=== PATIENT | female | born 1960 | race African-American/Black ===

== ENCOUNTER 2017-11-16 16:43 | Outpatient (CLI) | payer OTHER | END 2017-11-16 16:44 | disposition home or self-care (01) | LOC: BICRAD 16:43 | PROVIDERS: ATTEND Family Medicine | DX: M79.651 Pain in right thigh (principal) | CPT/HCPCS: 72170 ==

== ENCOUNTER 2018-05-12 16:03 | Outpatient (CLI) | payer OTHER | END 2018-05-12 16:04 | disposition home or self-care (01) | LOC: BICMAMMO 16:03 | PROVIDERS: ATTEND Family Medicine | DX: Z12.31 Encounter for screening mammogram for malignant neoplasm of breast (principal) | CPT/HCPCS: 77063; 77067 ==

== ENCOUNTER 2018-06-07 12:49 | Outpatient (CLI) | payer OTHER ==
--- NOTE | 2018-06-07 15:21 | ULT ---
LEFT BREAST ULTRASOUND: Date: 06/07/18 HISTORY: Focal asymmetry seen in the lower inner aspect of the left breast on screening mammography. COMPARISON: Mammograms dated 06/07/18, 05/12/18, and 09/30/11. TECHNIQUE: Multiplanar Medina scale and color Doppler images were obtained in a left breast ultrasound. FINDINGS: There is a well-circumscribed anechoic cyst measuring 4.0 mm in greatest dimension at the 8 o'clock p osition of the let breast. This likely corresponds to the mammographic abnormality. No suspicious mas s or shadowing is seen. IMPRESSION: BI-RADS Category 2 - Benign findings. Annual screening mammography is recommended. POS: [facility]
== END 2018-06-07 12:50 | disposition home or self-care (01) ==
LOC: BICMAMMO 12:49
PROVIDERS: ATTEND Family Medicine
DX: R92.8 Other abnormal and inconclusive findings on diagnostic imaging of breast (principal); N63.20 Unspecified lump in the left breast, unspecified quadrant
CPT/HCPCS: G0279

== ENCOUNTER 2021-12-23 14:28 | Emergency (ER) | payer OTHER ==
[2021-12-23 14:43] LABS: Hemoglobin 13.3 g/dL (12.0-16.0); Mean Corpuscular HGB CONC 31.8 g/dL (32.0-36.0); Mean Corpuscular Hemoglobin 23.1 pg (27.0-31.0); Mean Corpuscular Volume 72.6 fL (78.0-98.0); Mean Platelet Volume 8.4 fL (7.4-10.4); Platelet Count 291 thou/uL (130-400); RBC Distribution Width 13.2 % (11.5-14.5); Red Blood Cell (RBC) Count 5.76 mill/uL (4.20-5.40); White Blood Cell (WBC) Count 6.8 thou/uL (4.8-10.8)
[2021-12-23 14:50] LABS: INR-International Normal Ratio 0.9; PTT 25.8 sec (22.9-36.1); Prothrombin Time 12.1 sec (12.0-14.7)
[2021-12-23 14:59] LABS: ALT (SGPT) 25 U/L (8-55); AST (SGOT) 27 U/L (5-34); Albumin 4.1 g/dL (3.4-4.8); Alkaline Phosphatase 119 U/L (40-110); Anion Gap 14 mmol/L (10-20); BUN (Urea Nitrogen) 14 mg/dL (9.8-20.1); Bilirubin, Total 0.2 mg/dL (0.2-1.2); CK (CPK) 180 U/L (29-168); Calc. Creatinine Clearance 0 mL/min (70-130); Calcium 9.9 mg/dL (7.8-10.44); Carbon Dioxide 26 mmol/L (23-31); Chloride 105 mmol/L (98-107); Estimated GFR 74; Globulin 3.6 g/dL (2.4-3.5); Glucose 107 mg/dL (80-115); Lipase 27 U/L (8-78); Potassium 3.8 mmol/L (3.5-5.1); Protein, Total 7.7 g/dL (5.8-8.1); Sodium 141 mmol/L (136-145)
[2021-12-23 15:01] LABS: Eosinophils 1 % (0-10); Hypochromia SLIGHT = 6-15 cells (100X) (0-5/hpf); Lymphocytes 56 % (21-51); MDiff Complete? YES; Microcytosis SLIGHT = 6-15 cells (100X) (0-5/hpf); Monocytes 7 % (0-10); Neutrophil 31 % (42-75); Ovalocytes SLIGHT = 2-5 cells (100X) (0-1/hpf); Platelet Morphology Comment Appears Adequate; Polychromasia SLIGHT = 2-3 cells (100X) (0-2/hpf); Reactive Lymphocytes 4 % (0-10); Tear Drops SLIGHT = 2-5 cells (100X) (0-1/hpf)
[2021-12-23 15:31] LABS: Acetaminophen Less than 10.0 mcg/mL (10.0-30.0); Alcohol Less than 10 mg/dL (Less than 10); Salicylate Less than 8.0 mg/dL (15.0-30.0)
[2021-12-23] MEDS ORDERED: Ondansetron PF 4 MG/2 ML Vial ONE (15:42)
[2021-12-23] MEDS ORDERED: Aspirin 325 MG TAB ONE (15:42)
[2021-12-23] MEDS ORDERED: Aspirin Chewable 81 MG TAB ONE (15:45)
[2021-12-23] MEDS ORDERED: Acetaminophen 500 MG TAB ONE (16:42)
[2021-12-23 18:07] LABS: SARS-CoV-2 NAA Rapid Test Not Detected (NotDetected)
== END 2021-12-23 18:42 | disposition short-term general hospital (02) ==
LOC: ERS 14:28
DX: I63.9 Cerebral infarction, unspecified (principal); R55 Syncope and collapse; Z20.822 Contact with and (suspected) exposure to COVID-19
CPT/HCPCS: 36415; 70450; 71045; 80053; 80307; 82140; 82550; 83690; 84146; 84484; 85025; 85610; 85730; 93005; 94760; 96374; J2405; U0002

== ENCOUNTER 2024-06-01 09:09 | Outpatient (CLI) | payer MEDICARE | END 2024-06-01 09:10 | disposition home or self-care (01) | LOC: BICRAD 09:09 | PROVIDERS: ATTEND Family Medicine | DX: R05.3 Chronic cough (principal) | CPT/HCPCS: 71046 ==

== ENCOUNTER 2024-06-10 11:32 | Outpatient (CLI) | payer MEDICARE | END 2024-06-10 11:33 | disposition home or self-care (01) | LOC: BICRAD 11:32 | PROVIDERS: ATTEND Family Medicine | DX: M54.2 Cervicalgia (principal); M47.812 Spondylosis without myelopathy or radiculopathy, cervical region; M50.31 Other cervical disc degeneration, high cervical region; M50.321 Other cervical disc degeneration at C4-C5 level; M50.322 Other cervical disc degeneration at C5-C6 level; M50.323 Other cervical disc degeneration at C6-C7 level | CPT/HCPCS: 72040 ==

== ENCOUNTER 2024-10-19 10:24 | Outpatient (CLI) | payer MEDICARE | END 2024-10-19 10:25 | disposition home or self-care (01) | LOC: BICRAD 10:24 | PROVIDERS: ATTEND Family Medicine | DX: M54.41 Lumbago with sciatica, right side (principal); M47.26 Other spondylosis with radiculopathy, lumbar region; Z98.890 Other specified postprocedural states | CPT/HCPCS: 72100 ==

== ENCOUNTER 2024-12-22 09:51 | Outpatient (CLI) | payer MEDICARE | END 2024-12-22 09:52 | disposition home or self-care (01) | LOC: BICMAMMO 09:51 | PROVIDERS: ATTEND Family Medicine | DX: Z12.31 Encounter for screening mammogram for malignant neoplasm of breast (principal); N95.9 Unspecified menopausal and perimenopausal disorder; M85.851 Other specified disorders of bone density and structure, right thigh; M85.852 Other specified disorders of bone density and structure, left thigh; Z98.890 Other specified postprocedural states | CPT/HCPCS: 77063; 77067; 77080 ==